=== PATIENT | male | born 1980 | race Caucasian/White ===

== ENCOUNTER → 2023-07-28 | Outpatient (CLI) | payer OTHER, SELFPAY ==
[2023-07-28 10:27] LABS: Erythrocyte Sedimentation Rate 4 mm/hr (0-20)
[2023-07-28 10:29] LABS: Hematocrit 44.9 % (40-54); Hemoglobin 15.5 g/dL (13.0-16.5); Mean Corp Hgb Conc 34.5 g/dL (32-36); Mean Corpuscular Hgb 31.1 pg (27.0-32.0); Mean Platelet Vol. 10.9 fl (6.2-12.0); Platelet Count 305 K/mm3 (150-450); Red Blood Count 4.99 M/mm3 (4.6-6.2); White Blood Count 8.3 K/mm3 (4.4-11.0)
[2023-07-28 10:45] LABS: Vitamin B12 682 pg/mL (211-911)
[2023-07-28 11:53] LABS: AST(SGOT) 31 U/L (15-37); Alanine Aminotransfer ALT/SGPT 65 U/L (16-61); Albumin, Serum 3.6 g/dL (3.2-5.0); Alkaline Phosphatase 72 U/L (45-117); Anion Gap 6 (5-15); BUN 12 mg/dL (7-18); BUN/Creat Ratio 15.2 RATIO (10-20); CRP 4.11 mg/L (0.0-3.0); Chloride 108 mmol/L (98-107); Creatinine, Serum 0.79 mg/dL (0.70-1.30); EST Glomerular Filtration Rate 114 mL/min (>60); Est Glom Filt Rate - Afr Amer 138 mL/min (>60); Globulin 3.5 g/dL (2.2-4.2); Glucose 85 mg/dL (74-106); Potassium 3.9 mmol/L (3.5-5.1); Protein, Total 7.1 g/dL (6.4-8.2); Sodium Level 139 mmol/L (136-145)
[2023-07-30 12:08] LABS: ANTINUCLEAR ANTIBODIES DIRECT Negative (Negative); Vitamin D 1,25-Dihydroxy 60.5 pg/mL (24.8-81.5)
[2023-08-03 06:06] LABS: Free Kappa Light Chains 16.6 mg/L (3.3-19.4); Free Lambda Light Chains 15.6 mg/L (5.7-26.3); Vitamin B1, Thiamine 120.6 nmol/L (66.5-200.0)
== END | disposition home or self-care (01) ==
PROVIDERS: PCP Nurse Practitioner Family; Referring Provider Psychiatry & Neurology Neurology; Visit Provider Psychiatry & Neurology Neurology
DX: G62.9 Polyneuropathy, unspecified (principal)
CPT/HCPCS: 36415; 80053; 82607; 82652; 82746; 83883; 84425; 84443; 85027; 85652; 86038; 86140; 86225; 86235

== ENCOUNTER → 2023-09-17 | Outpatient (CLI) | payer OTHER, SELFPAY ==
--- OUTSIDE RECORDS SUMMARY | 2023-09-17 09:00 | XMS RPT_ITS | CCD ---
Author Name Unknown Address [address] [place] [address] Organization [facility] Care Team Providers Care Adapted Physical Education Specialist Name Role Phone Sulove, Saksham Unavailable Unavailable Sulove, Saksham Unavailable Unavailable Sulove, Saksham Unavailable Unavailable Sulove, Saksham Unavailable Unavailable Sulove, Saksham Unavailable Unavailable Sulove, Saksham Unavailable Unavailable Sulove, Saksham Unavailable Unavailable Sulove, Saksham Unavailable Unavailable Sulove, Saksham Unavailable Unavailable Sulove, Saksham Unavailable Unavailable Weinberg, Jamaica D Unavailable Unavailable Sulove, Saksham Unavailable Unavailable Weinberg, Jamaica D Unavailable Unavailable Sulove, Saksham Unavailable Unavailable Sulove, Saksham Unavailable Unavailable Weinberg, Jamaica D Unavailable Unavailable Weinberg, Jamaica D Unavailable Unavailable Sulove, Saksham Unavailable Unavailable Weinberg, Jamaica D Unavailable Unavailable Sulove, Saksham Unavailable Unavailable Weinberg, Jamaica D Unavailable Unavailable Weinberg, Jamaica D Unavailable Unavailable Sulove, Saksham Unavailable Unavailable Weinberg, Jamaica D Unavailable Unavailable Sulove, Saksham Unavailable Unavailable Weinberg, Jamaica D Unavailable Unavailable Weinberg, Jamaica D Unavailable Unavailable Unavailable LAILA CLEVELAND Attending Un available WEINBERGJAMAICA VICENTEISE Primary Care Unavailable LAILA CLEVELAND Admitting Un available JimenezJamaica monahan Unavailable Jamaica Duarte Primary Care Provider [phone] Jamaica Duarte Unavailable SALONI WEINBERG Attending Unavailab le WEINBERGSALONI VICENTE POLINA Referring Unavailab le WEINBERGSALONI VICENTE POLINA Primary Care Unavailab le WEINBERGSALONI VICENTE JAMAICA POLINA Attending Unavailab le WEINBERG, CONTROL BOARD OPERATOR JAMAICA POLINA Referring Unavailab le WEINBERG, CONTROL BOARD OPERATOR JAMAICA POLINA Primary Care Unavailab le WEINBERG, CONTROL BOARD OPERATOR JAMAICA POLINA Attending Unavailab le WEINBERG, CONTROL BOARD OPERATOR JAMAICA POLINA Referring Unavailab le WEINBERG, CONTROL BOARD OPERATOR JAMAICA POLINA Primary Care Unavailab le WEINBERG, CONTROL BOARD OPERATOR JAMAICA POLINA Referring Unavailab le WEINBERG, CONTROL BOARD OPERATOR JAMAICA POLINA Attending Unavailab le WEINBERG, CONTROL BOARD OPERATOR JAMAICA POLINA Primary Care Unavailab le WEINBERG, CONTROL BOARD OPERATOR JAMAICA POLINA Referring Unavailab le WEINBERG, CONTROL BOARD OPERATOR JAMAICA POLINA Primary Care Unavailab le WEINBERG, CONTROL BOARD OPERATOR JAMAICA POLINA Attending Unavailab le WEINBERG, CONTROL BOARD OPERATOR JAMAICA POLINA Referring Unavailab le WEINBERG, CONTROL BOARD OPERATOR JAMAICA POLINA Primary Care Unavailab le Leb, Keron Attending Unavailable WEINBERG, CONTROL BOARD OPERATOR JAMAICA POLINA Attending Unavailab le WEINBERG, CONTROL BOARD OPERATOR JAMAICA POLINA Referring Unavailab le WEINBERG, CONTROL BOARD OPERATOR JAMAICA POLINA Primary Care Unavailab le WEINBERG, CONTROL BOARD OPERATOR JAMAICA POLINA Primary Care Unavailab le WEINBERG, CONTROL BOARD OPERATOR JAMAICA POLINA Attending Unavailab le WEINBERG, CONTROL BOARD OPERATOR JAMAICA POLINA Primary Care Unavailab le WEINBERG, CONTROL BOARD OPERATOR JAMAICA POLINA Attending Unavailab le WEINBERG, CONTROL BOARD OPERATOR JAMAICA POLINA Primary Care Unavailab le WEINBERG, CONTROL BOARD OPERATOR JAMAICA POLINA Attending Unavailab le WEINBERG, CONTROL BOARD OPERATOR JAMAICA POLINA Primary Care Unavailab le Leb, Keron Attending Unavailable Chris GANNON-Jamaica GUALLPA Unavailable [phone] JAMAICA JIMENEZ Attending Unavailable JAMAICA JIMENEZ Primary Care Unavailable JAMAICA JIMENEZ Attending Unavailable JAMAICA JIMENEZ Primary Care Unavailable JAMAICA JIMENEZ Attending Unavailable JAMAICA JIMENEZ Primary Care Unavailable JAMAICA JIMENEZ Attending Unavailable JAMAICA JIMENEZ Primary Care Unavailable Allergies Allergy Classification Reported Allergen(s) Allergy Type Date of Onset Reaction(s) Facility (3 sources) Cefaclor; Translations: [CEFACLOR] Drug Allergy 10-17-2005 [facility] Medications Current Medications Medication Drug Class(es) Dates Sig (Normalized) Sig (Original) cyclobenzaprine hydrochloride 10 mg oral tablet (9 sources) Muscle Relaxant Start: 09-29-2022 take 1 tablet by mouth twice daily as needed cyclobenzaprine (Flexeril) 10 mg tablet Take 1 tablet (10 mg) by mouth 2 times a day as needed. 0 09/29/2022 Active gabapentin 300 mg oral capsule (13 sources) Anti-epileptic Agent Start: 12-30-2022 End: 04-02-2023 gabapentin (Neurontin) 300 mg capsule Indications: Neuropathy Take 2 capS (600 MG) in the morning and 1 CAP (300 MG) IN THE afternoon. Take 2 caps (600 MG) at bedtime. 150 capsule 2 04/02/2023 Active Completed/Discontinued Medications Medication Drug Class(es) Dates Sig (Normalized) Sig (Original) benzonatate 100 mg oral capsule (1 source) Non-narcotic Antitussive Start: 07-01-2022 take 1 capsule by mouth three times daily as needed for cough Benzonatate 100 MG Oral Capsule TAKE 1 CAPSULE BY MOUTH THREE TIMES DAILY NEEDED for cough Quantity: 20 Refills: 0 Ordered: 01-Jul-2022 DO Start : 01-Jul-2022 Complete 1 ml dexamethasone phosphate 4 mg/ml injection (1 source) Corticosteroid Start: 09-29-2022 Dexamethasone Sodium Phosphate 4 MG/ML Injection Solution INJECT 1 ML Intramuscular Quantity: 0 Refills: 0 Ordered: 29-Sep-2022 Jamaica Duarte Start : 29-Sep-2022 Complete diclofenac sodium 0.01 mg/mg topical gel (4 sources) Nonsteroidal Anti-inflammatory Drug Start: 01-05-2023 Diclofenac Sodium 1 % External Gel apply 2 gram topically QID for pain Quantity: 1 Refills: 1 Ordered: 05-Jan-2023 Keron Ta MD Start : 05-Jan-2023 Active Problems Active Problems Problem Classification Problem Date Documented Da te Episodic/Chronic Conditions associated with dizziness or vertigo (1 source) Dizziness; Translations: [Dizziness and giddiness] Episodic Disorders of lipid metabolism (17 sources) Mixed hyperlipidemia; Translations: [Mixed hyperlipidemia] Onset: 10-23-2022 10-23-2022 Chronic Other aftercare (8 sources) Patient encounter status; Translations: [Long-term (current) use of other medications] Episodic Other connective tissue disease (1 source) Pain in left foot; Translations: [Pain in left foot] 12-17-2022 Episodic Other connective tissue disease (1 source) Pain in right foot; Translations: [Pain in right foot] 12-17-2022 Episodic Other connective tissue disease (1 source) Olecranon bursitis, unspecified elbow; Translations: [Olecranon bursitis, unspecified elbow] Onset: 01-05-2023 Episodic Other hereditary and degenerative nervous system conditions (17 sources) Restless legs; Translations: [Restless legs syndrome (RLS)] Onset: 10-23-2022 10-23-2022 Chronic Other nervous system disorders (20 sources) Neuropathy; Translations: [Mononeuritis of unspecified site] Onset: 10-23-2022 12-17-2022 Chronic Other nervous system disorders (2 sources) Polyneuropathy, unspecified; Translations: [Polyneuropathy, unspecified] Onset: 10-23-2022 Chronic Other nervous system disorders (1 source) Cold feet; Translations: [Unspecified disturbances of skin sensation] 04-02-2023 Episodic Other non-traumatic joint disorders (1 source) Pain in left elbow; Translations: [Pain in left elbow] Onset: 01-05-2023 Episodic Other nutritional; endocrine; and metabolic disorders (6 sources) Body mass index 30+ - obesity; Translations: [Body Mass Index 31.0-31.9, adult] Chronic Other nutritional; endocrine; and metabolic disorders (10 sources) Obesity; Translations: [Obesity, unspecified] Onset: 10-23-2022 10-23-2022 Chronic Other upper respiratory disease (18 sources) Seasonal allergy; Translations: [Allergic rhinitis, cause unspecified] Onset: 10-23-2022 10-23-2022 Chronic Residual codes; unclassified (16 sources) History finding; Translations: [Other specified conditions influencing health status] Episodic Past or Other Problems Problem Classification Problem Date Documented Da te Episodic/Chronic Biliary tract disease (18 sources) Biliary calculus; Translations: [Calculus of gallbladder without mention of cholecystitis, without mention of obstruction] Onset: 10-23-2022 10-23-2022 Episodic Nutritional deficiencies (18 sources) Cobalamin deficiency; Translations: [Other B-complex deficiencies] Onset: 10-23-2022 10-23-2022 Episodic Other connective tissue disease (3 sources) Bursitis of olecranon of left elbow; Translations: [Olecranon bursitis] Onset: 12-30-2022 12-30-2022 Episodic Other connective tissue disease (5 sources) Olecranon bursitis, left elbow; Translations: [Olecranon bursitis, left elbow] Onset: 12-30-2022 Episodic Other connective tissue disease (2 sources) Pain in left foot; Translations: [Pain in left foot] Onset: 12-17-2022 Episodic Other connective tissue disease (2 sources) Pain in right foot; Translations: [Pain in right foot] Onset: 12-17-2022 Episodic Other nervous system disorders (15 sources) Paresthesia of foot ; Translations: [Disturbance of skin sensation] Onset: 10-23-2022 10-23-2022 Episodic Other nervous system disorders (4 sources) Paresthesia of skin; Translations: [Paresthesia of skin] Onset: 09-05-2022 Episodic Other nervous system disorders (4 sources) Anesthesia of skin; Translations: [Anesthesia of skin] Onset: 09-05-2022 Episodic Other nervous system disorders (2 sources) Unspecified disturbances of skin sensation; Translations: [Unspecified disturbances of skin sensation] Onset: 04-02-2023 Episodic Other skin disorders (2 sources) Sebaceous cyst of skin; Translations: [Sebaceous cyst] Onset: 09-07-2006 12-17-2022 Episodic Other upper respiratory infections (17 sources) Maxillary sinusitis; Translations: [Chronic maxillary sinusitis] Resolved: 12-03-2020 Chronic Residual codes; unclassified (13 sources) Influenza vaccination declined; Translations: [Vaccination not carried out because of patient refusal] Onset: 07-29-2022 Episodic Spondylosis; intervertebral disc disorders; other back problems (16 sources) Neck pain; Translations: [Cervicalgia] Onset: 10-20-2022 12-17-2022 Episodic Unclassified (2 sources) Onset: 12-17-2022 Resolved: 04-02-2023 12-17-2022 Results Test Name Value Interpretation Reference Range Facil ity Vital Signs Date Time Vital Sign Value Performing Clinician Facility 04-02-2023 [id number] Body height 175.3 cm Jamaica NAJERA Work Phone: [facility] 04-02-2023 15:04-0400 Body mass index (BMI) [Ratio] 31.9 kg/m2 Jamaica Jimenez APRN-CONTROL BOARD OPERATOR Work Phone: [facility] 04-02-2023 15:04-040 Body weight 97.98 kg Jamaica Jimenez APRN-CONTROL BOARD OPERATOR Work Phone: [facility] 04-02-2023 15:04-0400 Diastolic blood pressure 86 mm[Hg] Jamaica Jimenez COLLECTIONS SPECIALIST-CONTROL BOARD OPERATOR Work Phone: [facility] 04-02-2023 15:04-0400 Heart rate 78 /min Jamaica Jimenez COLLECTIONS SPECIALIST-CONTROL BOARD OPERATOR Work Phone: [facility] 04-02-2023 15:04-0400 SaO2% (BldA) [Mass fraction] 97 % Jamaica Jimenez COLLECTIONS SPECIALIST-CONTROL BOARD OPERATOR Work Phone: [facility] 04-02-2023 15:04-0400 Systolic blood pressure 132 mm[Hg] Jamaica Jimenez COLLECTIONS SPECIALIST-CONTROL BOARD OPERATOR Work Phone: [facility] 01-05-2023 16:24-0400 Body temperature 97.8 [degF] Jamaica Jimenez Work Phone: [facility] [address] Work Phone: 12-17-2022 15:58-0400 Body height 175.3 cm Jamaica Jimenez COLLECTIONS SPECIALIST-CONTROL BOARD OPERATOR Work Phone: [facility] 12-17-2022 15:58-0400 Body mass index (BMI) [Ratio] 32.34 kg/m2 Jamaica Jimenez COLLECTIONS SPECIALIST-CONTROL BOARD OPERATOR Work Phone: [facility] 12-17-2022 15:58-0400 Body weight 99.34 kg Jamaica Jimenez COLLECTIONS SPECIALIST-CONTROL BOARD OPERATOR Work Phone: [facility] 12-17-2022 15:58-0400 Diastolic blood pressure 82 mm[Hg] Jamaica Jimenez COLLECTIONS SPECIALIST-CONTROL BOARD OPERATOR Work Phone: [facility] 12-17-2022 15:58-0400 Heart rate 92 /min Jamaica Jimenez COLLECTIONS SPECIALIST-CONTROL BOARD OPERATOR Work Phone: [facility] 12-17-2022 15:58-0400 SaO2% (BldA) [Mass fraction] 96 % Jamaica Jimenez COLLECTIONS SPECIALIST-CONTROL BOARD OPERATOR Work Phone: [facility] 12-17-2022 15:58-0400 Systolic blood pressure 133 mm[Hg] Jamaica Jimenez COLLECTIONS SPECIALIST-CONTROL BOARD OPERATOR Work Phone: [facility] 09-29-2022 08:15-0500 Body mass index (BMI) [Ratio] 32.69 kg/m2 Jamaica Jimenez Work Phone: [facility] Work Phone: 09-29-2022 08:15-0500 Body surface area Derived from formula 2.11 m2 Jamaica Jimenez Work Phone: [facility] Work Phone: 09-29-2022 08:15-0500 Body weight 97.52 kg Jamaica Jimenez Work Phone: [facility] Work Phone: 09-29-2022 08:15-0500 Diastolic blood pressure 84 mm[Hg] Jamaica Jimenez Work Phone: [facility] Work Phone: 09-29-2022 08:15-0500 Heart rate 82 /min Jamaica Jimenez Work Phone: [facility] Work Phone: 09-29-2022 08:15-0500 Systolic blood pressure 134 mm[Hg] Jamaica Jimenez Work Phone: [facility] Work Phone: 09-17-2022 15:40-0500 Body height 172.72 cm Jamaica Jimenez Work Phone: [facility] Work Phone: 09-17-2022 15:40-0500 Body mass index (BMI) [Ratio] 32.99 kg/m2 Jamaica Jimenez Work Phone: [facility] Work Phone: 09-17-2022 15:40-0500 Body surface area Derived from formula 2.12 m2 Jamaica Jimenez Work Phone: [facility] Work Phone: 09-17-2022 15:40-0500 Body weight 98.43 kg Jamaica Jimenez Work Phone: [facility] Work Phone: 09-17-2022 15:40-0500 Diastolic blood pressure 78 mm[Hg] Jamaica Jimenez Work Phone: [facility] Work Phone: 09-17-2022 15:40-0500 Heart rate 84 /min Jamaica Jimenez Work Phone: [facility] Work Phone: 09-17-2022 15:40-0500 Systolic blood pressure 128 mm[Hg] Jamaica Jimenez Work Phone: [facility] Work Phone: 09-10-2022 15:24-0500 Body height 172.72 cm Jamaica Jimenez Work Phone: [facility] Work Phone: 09-10-2022 15:24-0500 Body mass index (BMI) [Ratio] 33.45 kg/m2 Jamaica Jimenez Work Phone: [facility] Work Phone: 09-10-2022 15:24-0500 Body surface area Derived from formula 2.13 m2 Jamaica Jimenez Work Phone: [facility] Work Phone: 09-10-2022 15:24-0500 Body weight 99.79 kg Jamaica Henna Chris Work Phone: [facility] Work Phone: 09-10-2022 15:24-0500 Diastolic blood pressure 88 mm[Hg] Jamaica Aguillon Jimenez Work Phone: [facility] Work Phone: 09-10-2022 15:24-0500 Heart rate 89 /min Jamaica Henna Jimenez Work Phone: [facility] Work Phone: 09-10-2022 15:24-0500 Systolic blood pressure 138 mm[Hg] Jamaica Henna Jimenez Work Phone: [facility] Work Phone: 08-26-2022 16:29-0500 Body height 172.72 cm Jamaica Henna Jimenez Work Phone: [facility] Work Phone: 08-26-2022 16:29-0500 Body mass index (BMI) [Ratio] 32.54 kg/m2 Jamiaca Henna Jimenez Work Phone: [facility] Work Phone: 08-26-2022 16:29-0500 Body surface area Derived from formula 2.1 m2 Jamaica Aguillon Jimenez Work Phone: [facility] Work Phone: 08-26-2022 16:29-0500 Body weight 97.07 kg Jamaica Aguillon Jimenez Work Phone: [facility] Work Phone: 08-26-2022 16:29-0500 Diastolic blood pressure 88 mm[Hg] Jamaica Aguillon Jimenez Work Phone: [facility] Work Phone: 08-26-2022 16:29-0500 Heart rate 104 /min Jamaica Henna Jimenez Work Phone: [facility] Work Phone: 08-26-2022 16:29-0500 Systolic blood pressure 138 mm[Hg] Jamaica Aguillon Jimenez Work Phone: [facility] Work Phone: 07-29-2022 16:05-0500 Body height 172.72 cm Jamaica Aguillon Jimenez Work Phone: [facility] Work Phone: 07-29-2022 16:05-0500 Body mass index (BMI) [Ratio] 32.99 kg/m2 Jamaica Aguillon Chris Work Phone: [facility] Work Phone: 07-29-2022 16:05-0500 Body surface area Derived from formula 2.12 m2 Jamaica Aguillon Jimenez Work Phone: [facility] Work Phone: 07-29-2022 16:05-0500 Body weight 98.43 kg Jamaica Aguillon Jimenez Work Phone: [facility] Work Phone: 07-29-2022 16:05-0500 Diastolic blood pressure 78 mm[Hg] Jamaica Aguillon Jimenez Work Phone: [facility] Work Phone: 07-29-2022 16:05-0500 Heart rate 100 /min Jamaica Aguillon Chris Work Phone: [facility] Work Phone: 07-29-2022 16:05-0500 SaO2% (BldA) [Mass fraction] 96 % Jamaica Aguillon Chris Work Phone: [facility] Work Phone: 07-29-2022 16:05-0500 Systolic blood pressure 132 mm[Hg] Jamaica Jimenez Work Phone: [facility] Work Phone: 05-08-2021 16:33-0400 Body height 172.72 cm Jamaica Weinberg Work Phone: [facility] Work Phone: 05-08-2021 16:33-0400 Body mass index (BMI) [Ratio] 31.17 kg/m2 Jamaica Weinberg Work Phone: [facility] Work Phone: 05-08-2021 16:33-0400 Body surface area Derived from formula 2.07 m2 Jamaica Souzakins Work Phone: [facility] Work Phone: 05-08-2021 16:33-0400 Body weight 92.99 kg Jamaica Souzakins Work Phone: [facility] Work Phone: 05-08-2021 16:33-0400 Diastolic blood pressure 78 mm[Hg] Jamaica Souzakins Work Phone: [facility] Work Phone: 05-08-2021 16:33-0400 Heart rate 88 /min Jamaica Weinberg Work Phone: [facility] Work Phone: 05-08-2021 16:33-0400 Systolic blood pressure 128 mm[Hg] Jamaica Weinberg Work Phone: [facility] Work Phone: Encounters Encounter Date Encounter Type Care Provider Facility Start: 07-28-2023 End: 07-28-2023 ambulatory [facility] Henna [facility]3] Ambulatory Start: 04-02-2023 End: 04-02-2023 ambulatory [facility] Ambulatory Start: 04-02-2023 End: 04-02-2023 Office outpatient visit 25 minutes Jamaica Jimenez COLLECTIONS SPECIALIST-CONTROL BOARD OPERATOR Work Phone: [facility] Procedures Date Procedure Procedure Detail Performing Clinician Start: 09-05-2022 Lipid 1996 panel - S link or Plasma Jamaica Jimenez COLLECTIONS SPECIALIST-CONTROL BOARD OPERATOR Work Phone: Start: 08-09-2002 Extraction of wisdom tooth Jamaica Weinberg Work Phone: Start: 08-09-2002 Mouth and face operations Jamaica Weinberg Work Phone: Plan of Treatment Date Care Activity Detail Author Start: 2030 Zoster Vaccines (1 o f 2) Zoster Vaccines (1 of 2) [facility] Start: 09-05-2027 Lipid panel Lipid Panel [facility] Start: 09-05-2025 Diabetes mellitus screening Diabetes Screening [facility] Start: 06-29-2023 End: 06-29-2023 Patient encounter procedure 06/29/2023 4:20 PM EST Office Visit [facility] [address] [place] [address] Jamaica Jimenez, COLLECTIONS SPECIALIST-CONTROL BOARD OPERATOR [address] [place] [address] [facility] Start: 04-09-2023 Influenza vaccination [facility] Start: 04-06-2023 FUV, Provider: Keron Ta, Status: Pen, Time: 4:15 PM FUV, Provider: Keron Ta, Status: Pen, Time: 4:15 PM [facility] [address] Work Phone: Start: 04-02-2023 End: 04-02-2025 Vascular US PVR with exercise Vascular US PVR with exercise Vascular Ultrasound Routine Neuropathy Bilateral cold feet Expected: 04/02/2023 (Approximate), Expires: 04/02/2025 [facility] Service Area Work Phone: Payers Date Payer Category Payer Unknown 2022 Unknown [id number] 2018 Private Health Insurance 1980 Unknown [id number] 2.16.84 0.1.314314.3.579.2.7 1980 Unknown [id number] 2.16.84 0.1.550058.3.579.2.717 1980 Unknown [id number] 2.16.84 0.1.466200.3.579.2. 1980 Unknown [id number] 2.16.84 0.1.633007.3.579.2.717 1980 Unknown [id number] 2.16.84 0.1.863009.3.579.2.717 1980 Unknown [id number] 2.16.84 0.1.670742.3.579.2.717 1980 Unknown [id number] 2.16.84 0.1.098042.3.579.2.717 1980 Unknown [id number] 2.16.84 0.1.732526.3.579.2.717 1980 Unknown [id number] 2.16.84 0.1.255228.3.579.2.717 1980 Unknown [id number] 2.16.84 0.1.297800.3.579.2.717 1980 Unknown [id number] 2.16. 840.1.516377.3.579.2.902 1980 Unknown [id number] 2.16. 840.1.101291.3.579.2.356 1980 Unknown [id number] 2.16. 840.1.676274.3.579.2.356 1980 Unknown [id number] 2.16. 840.1.671688.3.579.2.356 1980 Unknown [id number] 2.16. 840.1.420113.3.579.2.356 1980 Unknown [id number] 2.16. 840.1.863993.3.579.2.356 1980 Unknown [id number] 2.16. 840.1.853557.3.579.2.356 1980 Unknown [id number] 2.16. 840.1.745025.3.579.2.356 1980 Unknown [id number] .16.8 40.1.059761.3.579.2.9 1980 Unknown [id number] .16.8 40.1.901442.3.579.2.9 1980 Unknown [id number] .16.8 40.1.322949.3.579.2.1069 1980 Unknown [id number] 2.16.8 40.1.888765.3.579.2.1069 1980 Unknown [id number] 2.16.8 40.1.734183.3.579.2.1244 1980 Unknown [id number] 2.16.8 40.1.402042.3.579.2.1244 1980 Unknown [id number] 2.16.84 0.1.080017.3.579.2.1244 1980 Unknown [id number] 2.16.84 0.1.177649.3.579.2.1244 Self-pay Worker's Compensation [id number] Social History Date Type Detail Facility Start: 12-17-2022 End: 12-30-2022 Never used tobacco Never used tobacco [facility] Work Phone: Start: 12-17-2022 [facility] Work Phone: Start: 12-17-2022 Tobacco use and exposure Smokeless tobacco non-user [facility] Work Phone: Start: 12-17-2022 End: 04-02-2023 Alcohol intake Current drinker of alcohol (finding) [facility] Work Phone: Start: 12-17-2022 End: 12-30-2022 Tobacco use panel [facility] Work Phone: Start: 1980 Sex Assigned At Not on file [facility] Work Phone: Start: 12-07-2022 End: 12-17-2022 Exposure to SARS-CoV-2 (event) Not sure [facility] Clinical Notes 04-17-2021 to 04-02-2023 REINALDO Villaseñor - 04/02/2023 3:00 PM REINALDO Quiroga - 12/17/2022 4:00 PM EDT Note Date & Type Note Facility 04-02-2023 History of Present illness Narrative Subjective Patient ID: Prem Madrigal is a 42 y.o. male who presents for Follow-up (3 MO ,MED REFILL ) and Numbness (B/L FEET ). HPI: Presents today for MED REFILL OF GABAPENTIN. HE HAS BEEN TAKING 2 IN AM, 1 IN THE AFTERNOON, AND 2 IN PM BUT PAIN REMAINS. modifying factors consists of HE DID SEE DR. CORNEJO, PODIATRY AND SHE RECOMMENDS SEEING NEURO. C/O COLD EXTREMITIES X SEVERAL MONTHS associated symptoms consist of DENIES INJURY prior treatment consists of medication NONE OARRS: Jamaica Jimenez, COLLECTIONS SPECIALIST-CONTROL BOARD OPERATOR on 04/02/2023 3:11 PM I have personally reviewed the OARRS report for Prem Madrigal. I have considered the risks of abuse, dependence, addiction and diversion Is the patient prescribed a combination of a benzodiazepine and opioid? No Last Urine Drug Screen / ordered today: No Recent Results (from the past 8760 hour(s)) OPIATE/OPIOID/BENZO PRESCRIPTION COMPLIANCE Collection Time: 09/17/22 3:57 PM Result Value Ref Range DRUG SCREEN COMMENT URINE SEE BELOW Creatine, Urine 145.0 mg/dL Amphetamine Screen, Urine PRESUMPTIVE NEGATIVE NEGATIVE Barbiturate Screen, Urine PRESUMPTIVE NEGATIVE NEGATIVE Cannabinoid Screen, Urine PRESUMPTIVE NEGATIVE NEGATIVE Cocaine Screen, Urine PRESUMPTIVE NEGATIVE NEGATIVE PCP Screen, Urine PRESUMPTIVE NEGATIVE NEGATIVE 7-Aminoclonazepam <25 Cutoff <25 ng/mL Alpha-Hydroxyalprazolam <25 Cutoff <25 ng/mL Alpha-Hydroxymidazolam <25 Cutoff <25 ng/mL Alprazolam <25 Cutoff <25 ng/mL Chlordiazepoxide <25 Cutoff <25 ng/mL Clonazepam <25 Cutoff <25 ng/mL Diazepam <25 Cutoff <25 ng/mL Lorazepam <25 Cutoff <25 ng/mL Midazolam <25 Cutoff <25 ng/mL Nordiazepam <25 Cutoff <25 ng/mL Oxazepam <25 Cutoff <25 ng/mL Temazepam <25 Cutoff <25 ng/mL Zolpidem <25 Cutoff <25 ng/mL Zolpidem Metabolite (ZCA) <25 Cutoff <25 ng/mL 6-Acetylmorphine <25 Cutoff <25 ng/mL Codeine <50 Cutoff <50 ng/mL Hydrocodone <25 Cutoff <25 ng/mL Hydromorphone <25 Cutoff <25 ng/mL Morphine Urine <50 Cutoff <50 ng/mL Norhydrocodone <25 Cutoff <25 ng/mL Noroxycodone <25 Cutoff <25 ng/mL Oxycodone <25 Cutoff <25 ng/mL Oxymorphone <25 Cutoff <25 ng/mL Tramadol <50 Cutoff <50 ng/mL O-Desmethyltramadol <50 Cutoff <50 ng/mL Fentanyl <2.5 Cutoff<2.5 ng/mL Norfentanyl <2.5 Cutoff<2.5 ng/mL METHADONE CONFIRMATION,URINE <25 Cutoff <25 ng/mL EDDP <25 Cutoff <25 ng/mL Results are as expected. Controlled Substance Agreement: Date of the Last Agreement: 09/17/2022 Reviewed Controlled Substance Agreement including but not limited to the benefits, risks, and alternatives to treatment with a Controlled Substance medication(s). Visit Vitals BP 132/86 (BP Location: Right arm, Patient Position: Sitting) Pulse 78 Ht 1.753 m (5' 9 ) Wt 98 kg (216 lb) SpO2 97% BMI 31.90 kg/m Smoking Status Never BSA 2.18 m Review of Systems Constitutional: Negative for chills, fatigue, fever and unexpected weight change. HENT: Negative for congestion, ear pain, sore throat and trouble swallowing. Eyes: Negative for photophobia, pain, redness and visual disturbance. Respiratory: Negative for apnea, cough, choking, chest tightness, shortness of breath and wheezing. Cardiovascular: Negative for chest pain, palpitations and leg swelling. Gastrointestinal: Negative for abdominal distention, abdominal pain, blood in stool, constipation, diarrhea, nausea and vomiting. Genitourinary: Negative for difficulty urinating, dysuria, flank pain, frequency, hematuria and urgency. Musculoskeletal: Negative for arthralgias, back pain, gait problem, joint swelling, myalgias and neck pain. Skin: Negative for rash and wound. Neurological: Negative for dizziness, seizures, syncope, facial asymmetry, speech difficulty, weakness, numbness and headaches. Psychiatric/Behavioral: Negative for confusion, sleep disturbance and suicidal ideas. The patient is not nervous/anxious. Objective Physical Exam Constitutional: Appearance: Normal appearance. He is normal weight. HENT: Head: Normocephalic. Eyes: Extraocular Movements: Extraocular movements intact. Conjunctiva/sclera: Conjunctivae normal. Pupils: Pupils are equal, round, and reactive to light. Cardiovascular: Rate and Rhythm: Normal rate and regular rhythm. Pulses: Normal pulses. Heart sounds: Normal heart sounds. Pulmonary: Effort: Pulmonary effort is normal. Breath sounds: Normal breath sounds. Musculoskeletal: General: Normal range of motion. Cervical back: Normal range of motion. Skin: General: Skin is warm and dry. Neurological: General: No focal deficit present. Mental Status: He is alert and oriented to person, place, and time. Psychiatric: Mood and Affect: Mood normal. Behavior: Behavior normal. Thought Content: Thought content normal. Judgment: Judgment normal. Assessment/Plan Problem List Items Addressed This Visit Neuropathy Relevant Medications gabapentin (Neurontin) 300 mg capsule Other Relevant Orders Referral to Neurology Vascular US PVR with exercise Other Visit Diagnoses Bilateral cold feet - Primary Relevant Orders Vascular US PVR with exercise I WILL ORDER PVR TO ASSESS FOR ANY CIRCULATION ISSUES. I HAVE AGREED TO CALL WITH RESULTS WE DISCUSSED MOST COMMON SIDE EFFECTS OF PRESCRIBED MEDICATIONS. INDICATIONS, RISK, COMPLICATIONS, AND ALTERNATIVES OF MEDICATION/THERAPEUTICS WERE EXPLAINED AND DISCUSSED. PLEASE MONITOR CLOSELY FOR ANY UNTOWARD SIDE EFFECTS OR COMPLICATIONS OF MEDICATIONS. PATIENT IS STRONGLY ADVISED TO BE COMPLIANT WITH RECOMMENDATIONS. QUESTIONS AND CONCERNS WERE ADDRESSED. INSTRUCTED TO CALL, RETURN SOONER, OR GO TO THE ER, IF SYMPTOMS PERSIST OR WORSEN. THEY VOICED UNDERSTANDING AND DENIES FURTHER QUESTIONS AT THIS TIME. TIME CODE 1. PREPARATION FOR PATIENT'S VISIT (REVIEWING CHART, CURRENT MEDICAL RECORDS, OUTSIDE HEALTH PROVIDER RECORDS, PREVIOUS HISTORY, EXAM, TEST, PROCEDURE, AND MEDICATIONS) 2. FACE TO FACE ENCOUNTER OBTAINING HISTORY FROM THE PATIENT/FAMILY/CAREGIVERS; PERFORMING EVALUATION AND EXAMINATION; ORDERING TESTS OR PROCEDURES; REFERRING AND COMMUNICATING WITH OTHER HEALTHCARE PROVIDERS; COUNSELING AND EDUCATION OF THE PATIENT/FAMILY/CAREGIVERS; INDEPENDENTLY INTERPRETING RESULTS (TESTS, LABS, PROCEDURES, IMAGING) AND COMMUNICATING AND EXPLAINING RESULTS TO THE PATIENT/FAMILY/CAREGIVERS 3. COORDINATION OF CARE; PREPARING AND PRINTING DISCHARGE INSTRUCTIONS AND ANY EDUCATIONAL MATERIAL FOR THE PATIENT/FAMILY/CAREGIVERS. DOCUMENTING CLINICAL INFORMATION IN THE ELECTRONIC MEDICAL RECORD 4. REVIEWING OARRS NEEDED MDM 1) COMPLEXITY: MORE THAN 1 STABLE CHRONIC CONDITION ADDRESSED OR 1 ACUTE ILLNESS ADDRESSED 2)DATA: TESTS INTERPRETED AND OR ORDERED, TOOK INDEPENDENT HISTORY OR RECORDS REVIEWED 3)RISK: MODERATE RISK DUE TO NATURE OF MEDICAL CONDITIONS/COMORBIDITY OR MEDICATIONS ORDERED OR SURGICAL OR PROCEDURE REFERRAL 3 MONTHS MED REFILL documented in this encounter [facility] Work Phone: 12-17-2022 History of Present illness Narrative Subjective Patient ID: Prem Madrigal is a 42 y.o. male who presents for Follow-up (3 months). HPI: Presents today for MED REFILL OF GABAPENTIN WHICH HE TAKES FOR NEUROPATHY. 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 NUMBNESS AND TINGLING prior treatment consists of medication GABAPENTIN OARRS: REINALDO Villaseñor on 12/17/2022 4:20 PM I have personally reviewed the OARRS report for Prem Madrigal. I have considered the risks of abuse, dependence, addiction and diversion Is the patient prescribed a combination of a benzodiazepine and opioid? No Last Urine Drug Screen / ordered today: No Recent Results (from the past 73144 hour(s)) OPIATE/OPIOID/BENZO PRESCRIPTION COMPLIANCE Collection Time: 09/17/22 3:57 PM Result Value Ref Range DRUG SCREEN COMMENT URINE SEE BELOW Creatine, Urine 145.0 mg/dL Amphetamine Screen, Urine PRESUMPTIVE NEGATIVE NEGATIVE Barbiturate Screen, Urine PRESUMPTIVE NEGATIVE NEGATIVE Cannabinoid Screen, Urine PRESUMPTIVE NEGATIVE NEGATIVE Cocaine Screen, Urine PRESUMPTIVE NEGATIVE NEGATIVE PCP Screen, Urine PRESUMPTIVE NEGATIVE NEGATIVE 7-Aminoclonazepam <25 Cutoff <25 ng/mL Alpha-Hydroxyalprazolam <25 Cutoff <25 ng/mL Alpha-Hydroxymidazolam <25 Cutoff <25 ng/mL Alprazolam <25 Cutoff <25 ng/mL Chlordiazepoxide <25 Cutoff <25 ng/mL Clonazepam <25 Cutoff <25 ng/mL Diazepam <25 Cutoff <25 ng/mL Lorazepam <25 Cutoff <25 ng/mL Midazolam <25 Cutoff <25 ng/mL Nordiazepam <25 Cutoff <25 ng/mL Oxazepam <25 Cutoff <25 ng/mL Temazepam <25 Cutoff <25 ng/mL Zolpidem <25 Cutoff <25 ng/mL Zolpidem Metabolite (ZCA) <25 Cutoff <25 ng/mL 6-Acetylmorphine <25 Cutoff <25 ng/mL Codeine <50 Cutoff <50 ng/mL Hydrocodone <25 Cutoff <25 ng/mL Hydromorphone <25 Cutoff <25 ng/mL Morphine Urine <50 Cutoff <50 ng/mL Norhydrocodone <25 Cutoff <25 ng/mL Noroxycodone <25 Cutoff <25 ng/mL Oxycodone <25 Cutoff <25 ng/mL Oxymorphone <25 Cutoff <25 ng/mL Tramadol <50 Cutoff <50 ng/mL O-Desmethyltramadol <50 Cutoff <50 ng/mL Fentanyl <2.5 Cutoff<2.5 ng/mL Norfentanyl <2.5 Cutoff<2.5 ng/mL METHADONE CONFIRMATION,URINE <25 Cutoff <25 ng/mL EDDP <25 Cutoff <25 ng/mL Results are as expected. Controlled Substance Agreement: Date of the Last Agreement: 09/17/2022 Reviewed Controlled Substance Agreement including but not limited to the benefits, risks, and alternatives to treatment with a Controlled Substance medication(s). Visit Vitals BP 133/82 (BP Location: Right arm, Patient Position: Sitting) Pulse 92 Ht 1.753 m (5' 9 ) Wt 99.3 kg (219 lb) SpO2 96% BMI 32.34 kg/m Smoking Status Never BSA 2.2 m Review of Systems Constitutional: Negative for chills, fatigue, fever and unexpected weight change. HENT: Negative for congestion, ear pain, sore throat and trouble swallowing. Eyes: Negative for photophobia, pain, redness and visual disturbance. Respiratory: Negative for apnea, cough, choking, chest tightness, shortness of breath and wheezing. Cardiovascular: Negative for chest pain, palpitations and leg swelling. Gastrointestinal: Negative for abdominal distention, abdominal pain, blood in stool, constipation, diarrhea, nausea and vomiting. Genitourinary: Negative for difficulty urinating, dysuria, flank pain, frequency, hematuria and urgency. Musculoskeletal: Positive for arthralgias. Negative for back pain, gait problem, joint swelling, myalgias and neck pain. Skin: Negative for rash and wound. Neurological: Negative for dizziness, seizures, syncope, facial asymmetry, speech difficulty, weakness, numbness and headaches. Psychiatric/Behavioral: Negative for confusion, sleep disturbance and suicidal ideas. The patient is not nervous/anxious. Objective Physical Exam Constitutional: Appearance: Normal appearance. He is normal weight. HENT: Head: Normocephalic. Eyes: Extraocular Movements: Extraocular movements intact. Conjunctiva/sclera: Conjunctivae normal. Pupils: Pupils are equal, round, and reactive to light. Cardiovascular: Rate and Rhythm: Normal rate and regular rhythm. Pulses: Normal pulses. Heart sounds: Normal heart sounds. Pulmonary: Effort: Pulmonary effort is normal. Breath sounds: Normal breath sounds. Musculoskeletal: General: Normal range of motion. Cervical back: Normal range of motion. Skin: General: Skin is warm and dry. Neurological: General: No focal deficit present. Mental Status: He is alert and oriented to person, place, and time. Psychiatric: Mood and Affect: Mood normal. Behavior: Behavior normal. Thought Content: Thought content normal. Judgment: Judgment normal. Assessment/Plan Problem List Items Addressed This Visit Nervous Neck pain Neuropathy - Primary Relevant Medications gabapentin (Neurontin) 300 mg capsule Other Visit Diagnoses Foot pain, left Relevant Medications diclofenac sodium (Voltaren XR) 100 mg 24 hr tablet Other Relevant Orders Referral to Podiatry Foot pain, right Relevant Medications diclofenac sodium (Voltaren XR) 100 mg 24 hr tablet Other Relevant Orders Referral to Podiatry WE DISCUSSED MOST COMMON SIDE EFFECTS OF PRESCRIBED MEDICATIONS. INDICATIONS, RISK, COMPLICATIONS, AND ALTERNATIVES OF MEDICATION/THERAPEUTICS WERE EXPLAINED AND DISCUSSED. PLEASE MONITOR CLOSELY FOR ANY UNTOWARD SIDE EFFECTS OR COMPLICATIONS OF MEDICATIONS. PATIENT IS STRONGLY ADVISED TO BE COMPLIANT WITH RECOMMENDATIONS. QUESTIONS AND CONCERNS WERE ADDRESSED. INSTRUCTED TO CALL, RETURN SOONER, OR GO TO THE ER, IF SYMPTOMS PERSIST OR WORSEN. THEY VOICED UNDERSTANDING AND DENIES FURTHER QUESTIONS AT THIS TIME. TIME CODE 1. PREPARATION FOR PATIENT'S VISIT (REVIEWING CHART, CURRENT MEDICAL RECORDS, OUTSIDE HEALTH PROVIDER RECORDS, PREVIOUS HISTORY, EXAM, TEST, PROCEDURE, AND MEDICATIONS) 2. FACE TO FACE ENCOUNTER OBTAINING HISTORY FROM THE PATIENT/FAMILY/CAREGIVERS; PERFORMING EVALUATION AND EXAMINATION; ORDERING TESTS OR PROCEDURES; REFERRING AND COMMUNICATING WITH OTHER HEALTHCARE PROVIDERS; COUNSELING AND EDUCATION OF THE PATIENT/FAMILY/CAREGIVERS; INDEPENDENTLY INTERPRETING RESULTS (TESTS, LABS, PROCEDURES, IMAGING) AND COMMUNICATING AND EXPLAINING RESULTS TO THE PATIENT/FAMILY/CAREGIVERS 3. COORDINATION OF CARE; PREPARING AND PRINTING DISCHARGE INSTRUCTIONS AND ANY EDUCATIONAL MATERIAL FOR THE PATIENT/FAMILY/CAREGIVERS. DOCUMENTING CLINICAL INFORMATION IN THE ELECTRONIC MEDICAL RECORD 4. REVIEWING OARRS NEEDED MDM 1) COMPLEXITY: MORE THAN 1 STABLE CHRONIC CONDITION ADDRESSED OR 1 ACUTE ILLNESS ADDRESSED 2)DATA: TESTS INTERPRETED AND OR ORDERED, TOOK INDEPENDENT HISTORY OR RECORDS REVIEWED 3)RISK: MODERATE RISK DUE TO NATURE OF MEDICAL CONDITIONS/COMORBIDITY OR MEDICATIONS ORDERED OR SURGICAL OR PROCEDURE REFERRAL 3.5 MONTHS WITH MED REFILL documented in this encounter [facility] Work Phone: 09-17-2022 History of Present illness Narrative I have personally reviewed the OARRS report for PREM MADRIGAL. I have considered the risks of abuse, dependence, addiction and diversion.Last urine drug screening date/ordered today: 3Date of the last Controlled Substance Agreement: 3Presents today for MED CHECK FOR GABAPENTIN WHICH HE TAKES FOR RLS AND NEUROPATHY. HE IS DOING WELL ON MED BUT SYMPTOMS AT NIGHT NOT CONTROLLED WITH 300 MG. DENIES SIDE EFFECTS. NO NEW COMPLAINTS [facility] Work Phone: 04-17-2021 History of Present illness Narrative Presents today for [facility] LABS. C/O B/L FOOT PAIN THAT HAS RETURNED OVER THE PAST FEW WEEKS OR SO modifying factors consists of HAS NEUROPATHY TO B/L FOOT. HIS PAIN DECREASED AFTER STARTING THE CYMBALATA. associated symptoms consist of THE PAIN IS CONSTANT BUT SEVERITY OF THE PAIN FLUCTUATES. RLS THAT OCCURS ALL NIGHT WHILE HE SLEEPS. HIS CAN HARDLY STAND TO BE IN BED NEXT TO HIM R/T THE JERKING OF HIS LEGS prior treatment consists of medication CYMBALTA 30 MG BIDDIZZINESS- [id number]- STABLELIPIDS- DIET MODIFICATIONS DISCUSSED. REFUSING MED MANAGEMENT AT THIS TIME [facility] Work Phone: documented in this encounter [facility] Work Phone: Evaluation note* Diagnosis Bilateral cold feet- Primary Neuropathy Mononeuritis of unspecified site documented in this encounter [facility] Work Phone: History of Present illness NarrativePresents today for C/O NUMBNESS AND TINGLING TO B/L FEET X 3 YEARS modifying factors consists of HESTATES THE SYMPTOMS STARTED AFTER HE HURT IS BACK associated symptoms consist of OFF BALANCE. priortreatment consists of medication REQUIP 1 MG AND CYMBALTA. PREDNISONE AND ADVILMP-[facility] Work Phone: History of Present illness NarrativePresents today for F/U XR AND LABS. NONE DONE. C/O NUMBNESS AND TINGLING TO B/L FEET X 3 YEARS THATREMAINS modifying factors consists of HE STATES THE SYMPTOMS STARTED AFTER HE HURT IS BACK associated symptoms consist of OFF BALANCE. prior treatment consists of medication REQUIP 1 MG AND CYMBALTA.PREDNISONE AND ADVILMP-[facility] Work Phone: History of Present illness NarrativePresents today for F/U XR AND [facility] LABS. NONE DONE. C/O NUMBNESS AND TINGLING TO B/L FEET X 3 YEARS THAT REMAINS modifying factors consists of HAS RLS associated symptoms consist of NEUROPATHY AND COLD FEET. SNORES. SYMPTOMS WORSE AT NIGHT prior treatment consists of medication REQUIP AND CYMBALTA. PREDNISONE AND ADVILMP-[facility] Work Phone: History of Present illness NarrativePresents today for C/O NECK PAIN THAT RADIATES TO LEFT ELBOW X 2 WEEKS modifying factors consists of associated symptoms consist of DECREASED ROM. HE WILL DROP ITEMS IN HIS LEFT HAND ON/OFF. prior treatment consists of medication CHIROPRACTOR AND GABAPENTIN, HEAT AND ICEMP-[facility] Work Phone: History of Present illness Narrative* The pt presents with Medical Dx of Neck Pain. Pt presents with the following deficits: increased pain, decreased strength, ROM, flexibility, functional ability to scan with driving and perform activity at work. Pt would benefit from PT services in order to improve on these deficits and to maximize strength and ability for functional activity/mobility. * Clinical Presentation: Evolving with changing characteristics. * Level of Complexity: low * Problem List: activity limitations, ADLs/IADLs/self care skills, decreased knowledge of HEP, flexibility, pain, range of motion/joint mobility and strength. [facility] Work Phone: History of Present illness [id number] male who comes in today for evaluation of his left elbow swelling. The patient states that he had more swelling may be golf ball sized and it has gotten better over the last week or so soit is about 50%. No warmth or redness or pain. 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 but he does not recall any specific injury or incident.[facility] [address] Work Phone: Rehizm for referral (narrative)* Consultation (Routine) - Authorized Specialty Diagnoses / Procedures Referred By Selwyn rahman Referred To Contact Podiatry Diagnoses Foot pain, left Foot pain, right Procedures MD OFFICE/OUTPATIENT NEW HIGH MDM 60-74 MINUTES Jamaica Jimenez, TERESSA-SALONI [address] [place] [address] Referral ID Status Reason Start Date Expiration Date Visits Requested Visits Authorized [id number] Authorized Specialty Services Required 12/17/2022 06/15/2023 1 1 [facility] Work Phone: reason for visit Narrative* Initial Evaluation. * Referred by: Jamaica Jimenez CNP [facility] Work Phone: Summary Purpose Family History No Family History Records FoundUnknown Family Member Name Dates Details No pertinent family history: Mother, Father(V49.89, Z78.9) Status:Active Family history of myocardial infarction: Grandparent(V17.3, Z82.49) Status:Active Family history of hypertensi on: Grandparent(V17.49, Z82.49) Status:Active Family history of malignant neoplasm of breast: Grandparent(V16.3, Z80.3) Status:Active Unknown Family Member Name Dates Details No pertinent family history: Mother, Father(V49.89, Z78.9) Status:Active Family history of myocardial infarction: Grandparent(V17.3, Z82.49) Status:Active Family history of hypertensi on: Grandparent(V17.49, Z82.49) Status:Active Family history of malignant neoplasm of breast: Grandparent(V16.3, Z80.3) Status:Active Unknown Family Member Name Dates Details No pertinent family history: Mother, Father(V49.89, Z78.9) Status:Active Family history of myocardial infarction: Grandparent(V17.3, Z82.49) Status:Active Family history of hypertensi on: Grandparent(V17.49, Z82.49) Status:Active Family history of malignant neoplasm of breast: Grandparent(V16.3, Z80.3) Status:Active Unknown Family Member Name Dates Details No pertinent family history: Mother, Father(V49.89, Z78.9) Status:Active Family history of myocardial infarction: Grandparent(V17.3, Z82.49) Status:Active Family history of hypertensi on: Grandparent(V17.49, Z82.49) Status:Active Family history of malignant neoplasm of breast: Grandparent(V16.3, Z80.3) Status:Active Unknown Family Member Name Dates Details No pertinent family history: Mother, Father(V49.89, Z78.9) Status:Active Family history of myocardial infarction: Grandparent(V17.3, Z82.49) Status:Active Family history of hypertensi on: Grandparent(V17.49, Z82.49) Status:Active Family history of malignant neoplasm of breast: Grandparent(V16.3, Z80.3) Status:Active Unknown Family Member Name Dates Details No pertinent family history: Mother, Father(V49.89, Z78.9) Status:Active Family history of myocardial infarction: Grandparent(V17.3, Z82.49) Status:Active Family history of hypertensi on: Grandparent(V17.49, Z82.49) Status:Active Family history of malignant neoplasm of breast: Grandparent(V16.3, Z80.3) Status:Active Unknown Family Member Name Dates Details No pertinent family history: Mother, Father(V49.89, Z78.9) Status:Active Family history of myocardial infarction: Grandparent(V17.3, Z82.49) Status:Active Family history of hypertensi on: Grandparent(V17.49, Z82.49) Status:Active Family history of malignant neoplasm of breast: Grandparent(V16.3, Z80.3) Status:Active Unknown Family Member Name Dates Details No pertinent family history: Mother, Father(V49.89, Z78.9) Status:Active Family history of myocardial infarction: Grandparent(V17.3, Z82.49) Status:Active Family history of hypertensi on: Grandparent(V17.49, Z82.49) Status:Active Family history of malignant neoplasm of breast: Grandparent(V16.3, Z80.3) Status:Active Unknown Family Member Name Dates Details No pertinent family history: Mother, Father(V49.89, Z78.9) Status:Active Family history of myocardial infarction: Grandparent(V17.3, Z82.49) Status:Active Family history of hypertensi on: Grandparent(V17.49, Z82.49) Status:Active Family history of malignant neoplasm of breast: Grandparent(V16.3, Z80.3) Status:Active Unknown Family Member Name Dates Details No pertinent family history: Mother, Father(V49.89, Z78.9) Status:Active Family history of myocardial infarction: Grandparent(V17.3, Z82.49) Status:Active Family history of hypertensi on: Grandparent(V17.49, Z82.49) Status:Active Family history of malignant neoplasm of breast: Grandparent(V16.3, Z80.3) Status:Active Unknown Family Member Name Dates Details No pertinent family history: Mother, Father(V49.89, Z78.9) Status:Active Family history of myocardial infarction: Grandparent(V17.3, Z82.49) Status:Active Family history of hypertensi on: Grandparent(V17.49, Z82.49) Status:Active Family history of malignant neoplasm of breast: Grandparent(V16.3, Z80.3) Status:Active Unknown Family Member Name Dates Details No pertinent family history: Mother, Father(V49.89, Z78.9) Status:Active Family history of myocardial infarction: Grandparent(V17.3, Z82.49) Status:Active Family history of hypertensi on: Grandparent(V17.49, Z82.49) Status:Active Family history of malignant neoplasm of breast: Grandparent(V16.3, Z80.3) Status:Active Unknown Family Member Name Dates Details No pertinent family history: Mother, Father(V49.89, Z78.9) Status:Active Family history of myocardial infarction: Grandparent(V17.3, Z82.49) Status:Active Family history of hypertensi on: Grandparent(V17.49, Z82.49) Status:Active Family history of malignant neoplasm of breast: Grandparent(V16.3, Z80.3) Status:Active Unknown Family Member Name Dates Details No pertinent family history: Mother, Father(V49.89, Z78.9) Status:Active Family history of myocardial infarction: Grandparent(V17.3, Z82.49) Status:Active Family history of hypertensi on: Grandparent(V17.49, Z82.49) Status:Active Family history of malignant neoplasm of breast: Grandparent(V16.3, Z80.3) Status:Active Unknown Family Member Name Dates Details No pertinent family history: Mother, Father(V49.89, Z78.9) Status:Active Family history of myocardial infarction: Grandparent(V17.3, Z82.49) Status:Active Family history of hypertensi on: Grandparent(V17.49, Z82.49) Status:Active Family history of malignant neoplasm of breast: Grandparent(V16.3, Z80.3) Status:Active Unknown Family Member Name Dates Details No pertinent family history: Mother, Father(V49.89, Z78.9) Status:Active Family history of myocardial infarction: Grandparent(V17.3, Z82.49) Status:Active Family history of hypertensi on: Grandparent(V17.49, Z82.49) Status:Active Family history of malignant neoplasm of breast: Grandparent(V16.3, Z80.3) Status:Active Advance Directives No Advanced Directives Records FoundNo Advanced Directives Records FoundNo Advanced Directives Records FoundNo Advanced Directives Records FoundNo Advanced Directives Records FoundNo Advanced Directives Records Found Chief Complaint F/U LABS ([facility])YEARLY F/U (NO LABS DONE)- DISCUSS NEUROPATHY IN B/L FEET1 MONTH F/U - NO XRAY LS SPINE DUE TO LACK OF INSURANCE. PATIENT NOW HAS NEW JOB AND INSURANCE. CONTINUES TO HAVE NUMBNESS, TINGLING, BURNING, AND PAIN IN BOTH FEET. NO RELIEF WITH REQUIP DOSE INCREASE.F/U WITH LABS AND XR. NEUROPATHY IS THE SAMEPt here for 1 week med ck.PT HERE TODAY C/O NECK PAIN X 2 WEEKS,PT STATES THE PAIN RADIATES* PATIENT PRESENTS TO OFFICE FOR : Left Elbow swelling probable Olecranon Bursitis. * ONSET: 1 MO * DOI / DOS: NA * IMPROVED: down some 50% * PAIN: DISCOMFORT * PAIN MEDS TAKEN: DICLOFENAC * ROM: NORM * ICE / HEAT APPLIED: ICE * BRACE WORN: COMPRESSION * LAST INJECTION: * REFERRAL: Phong JIMENEZ * ACCOMPANIED BY: SELF Reason for Referral Specialty Diagnoses / Procedures Referred By Selwyn rahman Referred To Contact Cardiology Diagnoses Neuropathy Bilateral cold feet Procedures Vascular US PVR with exercise Jamaica Jimenez, COLLECTIONS SPECIALIST-CONTROL BOARD OPERATOR [address] [place] [address] Referral ID Status Reason Start Date Expiration Date Visits Requested Visits Authorized [id number] Authorized Perform Procedure 04/02/2023 09/29/2023 1 1 Specialty Diagnoses / Procedures Referred By Selywn rahman Referred To Contact Neurology Diagnoses Neuropathy Procedures MD OFFICE/OUTPATIENT NEW HIGH MDM 60-74 MINUTES Jamaica Jimenez, COLLECTIONS SPECIALIST-CONTROL BOARD OPERATOR [address] [place] [address] Referral ID Status Reason Start Date Expiration Date Visits Requested Visits Authorized [id number] Authorized Specialty Services Required 04/02/2023 09/29/2023 1 1 Additional Source Comments (unrecognized sect ion and content) No Status Records FoundNo Status Records FoundNo Status Records FoundNo Status Records FoundNo Status Records FoundNo Status Records Found INFORMATION SOURCE (unrecogn ized section and content) DATE CREATED AUTHOR AUTHOR'S ORGANIZ ATION 10/31/2021 [facility] DATE CREATED AUTHOR AUTHOR'S ORGANIZ ATION 01/16/2023 [facility] DATE CREATED AUTHOR AUTHOR'S ORGANIZ ATION 01/16/2023 [facility] DATE CREATED AUTHOR AUTHOR'S ORGANIZ ATION 01/16/2023 [facility] DATE CREATED AUTHOR AUTHOR'S ORGANIZ ATION 07/31/2023 [facility] Reason for Visit (unrecogniz ed section and content) Reason Comments Follow-up 3 MO ,MED REFILL Numbness B/L FEET Care Teams (unrecognized sec tion and content) Adapted Physical Education Specialist Relationship Specialty Start Date End Date Jamaica Jimenez, TERESSA-SALONI [address] [place] [address] PCP - General 11/28/19 Jamaica Jimenez, TERESSA-SALONI [address] [place] [address] PCP - MMO ACO PCP 09/09/22 FOR RECORDS PERTAINING TO PATIENTS WHO ARE OR HAVE BEEN ENROLLED IN A CHEMICAL DEPENDENCY/SUBSTANCEABUSE PROGRAM, SOME INFORMATION MAY BE OMITTED. This clinical summary was aggregated from multiple sources. Caution should be exercised in using it in the provision of clinical care. This summary normalizes information from multiple sources, and as a consequence, information in this document may materially change the coding, format and clinical context of patient data. In addition, data may be omitted in some cases. CLINICAL DECISIONS SHOULD BE BASED ON THE PRIMARY CLINICAL RECORDS. [facility]. provides no warranty or guarantee of the accuracy or completeness of information in this document.
== END | disposition home or self-care (01) ==
LOC: SL 08:49
PROVIDERS: PCP Nurse Practitioner Family; Visit Provider Psychiatry & Neurology Neurology
DX: G47.10 Hypersomnia, unspecified (principal)
CPT/HCPCS: 95806

== ENCOUNTER → 2023-09-29 | Outpatient (CLI) | payer OTHER, SELFPAY ==
--- NOTE | 2023-09-29 11:57 | NEURO ---
NCS and/or EMG Patient Report Ordering Doctor: Eleazar Chacon DATE OF SERVICE: 09/29/23 Trevor presents for electrodiagnostic testing of the lower limbs. He reports 4 to 5-year history of pain and numbness in both feet. He reports occasional difficulty with balance. Electrodiagnostic findings: Peroneal motor nerve demonstrates normal distal latency and amplitude bilaterally. There is decreased right peroneal motor conduction velocity. There is borderline decreased left peroneal motor conduction velocity. Tibial motor responses within normal limits bilaterally. Prolonged peroneal and tibial F?waves. Prolonged H reflex bilaterally. Sensory responses were not obtainable. Needle EMG testing was performed the lower limbs. All muscles tested showed no evidence of denervation with normal motor unit action potentials. Electrodiagnostic impression: This is an abnormal study in the lower limbs. 1. Electrodiagnostic findings suggestive of peripheral polyneuropathy, sensory greater than motor. There is evidence of demyelination. 2. There is no electrodiagnostic evidence for lumbosacral radiculopathy. Multi Select Codes Neurology Neurology Interp Codes: 17324-34 Musc test done w/n test comp (interp) (2) and 85402-03 Nr cndj test 9-10 studies (interp)
== END | disposition home or self-care (01) ==
PROVIDERS: PCP Nurse Practitioner Family; Referring Provider Psychiatry & Neurology Neurology; Visit Provider Psychiatry & Neurology Neurology
DX: G62.9 Polyneuropathy, unspecified (principal); R20.2 Paresthesia of skin
CPT/HCPCS: 95886; 95911

== ENCOUNTER → 2023-12-28 | Outpatient (CLI) | payer OTHER, SELFPAY ==
[2023-12-28 17:58] LABS: AST(SGOT) 23 U/L (15-37); Alanine Aminotransfer ALT/SGPT 57 U/L (16-61); Albumin, Serum 3.6 g/dL (3.2-5.0); Alkaline Phosphatase 71 U/L (45-117); Bilirubin, Direct 0.13 mg/dL (0.00-0.30); CRP 2.93 mg/L (0.0-3.0); Globulin 3.4 g/dL (2.2-4.2)
== END | disposition home or self-care (01) ==
LOC: MTLAB 15:52
PROVIDERS: PCP Nurse Practitioner Family; Referring Provider Psychiatry & Neurology Neurology; Visit Provider Psychiatry & Neurology Neurology
DX: G62.9 Polyneuropathy, unspecified (principal)
CPT/HCPCS: 36415; 80076; 86140

== ENCOUNTER → 2024-01-17 | Outpatient (CLI) | payer OTHER, SELFPAY | END | disposition home or self-care (01) | LOC: SL 19:52 | PROVIDERS: PCP Nurse Practitioner Family; Referring Provider Psychiatry & Neurology Neurology; Visit Provider Psychiatry & Neurology Neurology | DX: G47.10 Hypersomnia, unspecified (principal) | CPT/HCPCS: 95810 ==

== ENCOUNTER → 2024-08-16 | Outpatient (CLI) | payer OTHER, SELFPAY ==
--- NOTE | 2024-08-16 11:29 | NEURO ---
NCS and/or EMG Patient Report Ordering Doctor: Eleazar Chacon DATE OF SERVICE: 08/16/24 Trevor presents for electrodiagnostic testing of the upper limbs. He reports weakness in both hands. Electrodiagnostic findings: Right median motor nerve demonstrates normal distal latency and amplitude with borderline reduced conduction velocity. Left median motor nerve demonstrates normal distal latency, amplitude and conduction velocity. Ulnar motor responses within normal limits bilaterally. Normal median and ulnar F?waves. Prolonged median sensory latency at the wrist bilaterally. Absent right median palmar response. Normal ulnar and radial sensory responses. Needle EMG testing was performed in the upper limbs. All muscles tested showed no evidence of denervation with normal motor unit action potentials. Electrodiagnostic impression: This is an abnormal study in the upper limbs 1. Electrodiagnostic findings suggestive of bilateral median mononeuropathy. This is consistent with a mild bilateral carpal tunnel syndrome. Multi Select Codes Neurology Neurology Interp Codes: 14971-51 Musc test done w/n test comp (interp) (2) and 77464-39 Nr cndj test 13/> studies (interp)
== END | disposition home or self-care (01) ==
LOC: PSN 09:46
PROVIDERS: PCP Nurse Practitioner Family; Referring Provider Psychiatry & Neurology Neurology; Visit Provider Psychiatry & Neurology Neurology
DX: R20.0 Anesthesia of skin (principal); R20.2 Paresthesia of skin; M25.529 Pain in unspecified elbow
CPT/HCPCS: 95886; 95913